=== PATIENT | female | born 1985 | race Caucasian/White ===

== ENCOUNTER → 2024-04-13 | Outpatient (CLI) | payer OTHER ==
[2024-04-14 05:08] LABS: MUMPS VIRUS IGG ANTIBODY 24.5 AU/mL (Immune >10.9); RUBELLA AB IGG-REFLAB 2.86 index (Immune >0.99); RUBEOLA (MEASLES) IGG 16.8 AU/mL (Immune >16.4)
== END | disposition home or self-care (01) ==
LOC: LABMN 10:44
PROVIDERS: ATTEND Internal Medicine
DX: Z02.1 Encounter for pre-employment examination (principal)
CPT/HCPCS: 86706; 86735; 86762; 86765; 86787

== ENCOUNTER → 2025-08-26 | Outpatient (CLI) | payer OTHER ==
[~2025-08-26] MED LIST: BUSP10TA23 PO; CARI3CAP PO; LAMO-24 PO
== END | disposition home or self-care (01) ==
LOC: RADMN 10:50
PROVIDERS: ATTEND Internal Medicine
DX: M17.0 Bilateral primary osteoarthritis of knee (principal)
CPT/HCPCS: 73560-TC